=== PATIENT | male | born 1955 | race Caucasian/White ===

== ENCOUNTER 2020-09-01 13:02 | Outpatient (CLI) | payer OTHER, SELFPAY ==
[2020-09-01 13:12] LABS: Hematocrit 42.9 % (40.0-54.0); Hemoglobin 13.8 g/dL (14.0-18.0); Mean Corpuscular HGB Conc 32.2 g/dL (32.0-36.0); Mean Corpuscular Hemoglobin 28.6 pg (27.0-31.0); Mean Platelet Volume 9.4 fl (8.7-11.0); Platelet Count Result 269 K/mm3 (150-420); Red Blood Count 4.82 M/mm3 (4.70-6.10); Red Cell Distribution Width 12.8 % (11.6-14.4); White Blood Count 7.5 K/mm3 (4.8-10.8)
[2020-09-01 14:10] LABS: Alanine Aminotransferase 34 U/L (16-63); Albumin Level 4.4 g/dL (3.4-5.0); Alkaline Phosphatase 73 U/L (46-116); Anion Gap 10 mmol/L (8-16); Aspartate Amino Transferase 20 U/L (15-37); Bilirubin,Total 0.8 mg/dL (0.00-1.00); Blood Urea Nitrogen 14 mg/dL (7-18); Calcium 9.2 mg/dL (8.5-10.1); Carbon Dioxide 29 mmol/L (21-32); Chloride 104 mmol/L (98-108); Cholesterol 188 mg/dL (0-200); Estimated Glomerular Filt Rate > 60; Glucose 87 mg/dL (70-99); HDL Direct 43 mg/dL (40-60); LDL Cholesterol Calculated 128 mg/dL (<130); Osmolality Calculated 295 mOsm/kg (285-295); Potassium 4.3 mmol/L (3.5-5.1); Sodium 143 mmol/L (136-145); Total Protein 7.5 g/dL (6.4-8.2); Triglycerides 84 mg/dL (0-150)
== END 2020-09-01 13:03 | disposition home or self-care (01) ==
LOC: CHSLAB 13:05
PROVIDERS: PCP Family Medicine; Visit Provider Family Medicine
DX: I10 Essential (primary) hypertension (principal)
CPT/HCPCS: 36415; 80053; 80061; 85027

== ENCOUNTER 2021-01-06 16:15 | Outpatient (NON) | payer OTHER, SELFPAY | END 2021-01-06 16:16 | LOC: CHSLAB 16:16 | PROVIDERS: Visit Provider Family Medicine | DX: L57.0 Actinic keratosis (principal) | CPT/HCPCS: 88305 ==

== ENCOUNTER 2022-03-24 09:47 | Outpatient (CLI) | payer OTHER, SELFPAY ==
[2022-03-24 09:57] LABS: Hematocrit 43.9 % (40.0-54.0); Hemoglobin 14.2 g/dL (14.0-18.0); Mean Corpuscular HGB Conc 32.3 g/dL (32.0-36.0); Mean Corpuscular Hemoglobin 28.7 pg (27.0-31.0); Mean Corpuscular Volume 88.7 fL (78.0-102.0); Mean Platelet Volume 9.8 fl (8.7-11.0); Platelet Count Result 273 K/mm3 (150-420); Red Blood Count 4.95 M/mm3 (4.70-6.10); Red Cell Distribution Width 12.6 % (11.6-14.4); White Blood Count 7.4 K/mm3 (4.8-10.8)
[2022-03-24 10:14] LABS: Alanine Aminotransferase 30 U/L (16-63); Albumin Level 4.3 g/dL (3.4-5.0); Alkaline Phosphatase 78 U/L (46-116); Anion Gap 7 mmol/L (8-16); Aspartate Amino Transferase 18 U/L (15-37); Bilirubin,Total 1.5 mg/dL (0.00-1.00); Blood Urea Nitrogen 24 mg/dL (7-18); Calcium 9.8 mg/dL (8.5-10.1); Carbon Dioxide 29 mmol/L (21-32); Chloride 103 mmol/L (98-108); Cholesterol 96 mg/dL (0-200); Estimated Glomerular Filt Rate 43; Glucose 106 mg/dL (70-99); HDL Direct 39 mg/dL (40-60); LDL Cholesterol Calculated 43 mg/dL (<130); Osmolality Calculated 292 mOsm/kg (285-295); Sodium 139 mmol/L (136-145); Total Protein 7.9 g/dL (6.4-8.2); Triglycerides 68 mg/dL (0-150)
== END 2022-03-24 09:48 | disposition home or self-care (01) ==
LOC: CHSLAB 09:49
PROVIDERS: PCP Family Medicine; Visit Provider Family Medicine
DX: I10 Essential (primary) hypertension (principal)
CPT/HCPCS: 36415; 80053; 80061; 85027

== ENCOUNTER 2023-03-22 08:46 | Outpatient (CLI) | payer MEDICARE, SELFPAY ==
[2023-03-22 09:00] LABS: Hematocrit 40.1 % (37.0-46.0); Hemoglobin 12.9 g/dL (12.4-15.3); Mean Corpuscular HGB Conc 32.2 g/dL (32.0-36.0); Mean Corpuscular Hemoglobin 28.5 pg (27.0-31.0); Mean Corpuscular Volume 88.5 fL (78.0-102.0); Mean Platelet Volume 9.2 fl (8.7-11.0); Platelet Count Result 223 K/mm3 (150-420); Red Blood Count 4.53 M/mm3 (4.70-6.10); Red Cell Distribution Width 12.6 % (11.6-14.4); White Blood Count 6.4 K/mm3 (4.8-10.8)
[2023-03-22 09:51] LABS: Alanine Aminotransferase 30 U/L (16-63); Albumin Level 3.8 g/dL (3.4-5.0); Alkaline Phosphatase 81 U/L (46-116); Anion Gap 9 mmol/L (8-16); Aspartate Amino Transferase 24 U/L (15-37); Bilirubin,Total 0.7 mg/dL (0.00-1.00); Blood Urea Nitrogen 13 mg/dL (7-18); Calcium 8.9 mg/dL (8.5-10.1); Carbon Dioxide 29 mmol/L (21-32); Chloride 107 mmol/L (98-108); Cholesterol 118 mg/dL (0-200); Estimated Glomerular Filt Rate > 60; Glucose 109 mg/dL (70-99); HDL Direct 38 mg/dL (40-60); LDL Cholesterol Calculated 65 mg/dL (<130); Osmolality Calculated 301 mOsm/kg (285-295); Potassium 4.1 mmol/L (3.5-5.1); Sodium 145 mmol/L (136-145); Triglycerides 77 mg/dL (0-150)
== END 2023-03-22 08:47 | disposition home or self-care (01) ==
LOC: CHSLAB 08:49
PROVIDERS: PCP Family Medicine; Visit Provider Family Medicine
DX: I10 Essential (primary) hypertension (principal)
CPT/HCPCS: 36415; 80053; 80061; 85027

== ENCOUNTER 2024-02-21 10:29 | Outpatient (CLI) | payer MEDICARE, SELFPAY ==
--- NOTE | ~2024-02-21 | XR_ITS ---
XR ankle LT min 3V 02/21/2024 11:00 Indication: Left ankle pain Procedure: 4 views left ankle Comparison: No prior studies for comparison. 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 Small degenerative calcaneal enthesophyte at the plantar surface. No fracture or traumatic malalignment. There are loose bodies ad jacent to the lateral malleolus. Ankle mortise intact. Talar dome is normal. Impression: 1: Mild polyarticular osteoarthritis. Reviewed, dictated and finalized at location A. Impression: 1: Mild polyarticular osteoarthritis.
[2024-02-21 10:55] LABS: Basophils Absolute Auto 0.03 K/mm3 (0.00-0.10); Basophils Percent Auto 0.5 % (0.0-1.0); Eosinophils Absolute Auto 0.17 K/mm3 (0.02-0.50); Eosinophils Percent Auto 2.6 % (1.0-6.0); Hematocrit 41.7 % (37.0-46.0); Hemoglobin 13.6 g/dL (12.4-15.3); Immature Granulocyte Absolute 0.02 K/mm3 (0.00-0.00); Immature Granulocyte Percent A 0.3 % (0.0-0.0); Lymphocytes Absolute Auto 1.12 K/mm3 (1.10-4.50); Lymphocytes Percent Auto 17.3 % (18.0-42.0); Mean Corpuscular HGB Conc 32.6 g/dL (32-36); Mean Corpuscular Hemoglobin 28.5 pg (27.0-31.0); Mean Corpuscular Volume 87.2 fL (78.0-102.0); Monocytes Absolute Auto 0.45 K/mm3 (0.10-0.90); Neutrophils Absolute Auto 4.67 K/mm3 (1.70-7.20); Neutrophils Percent Auto 72.3 % (50.0-70.0); Platelet Count Result 267 K/mm3 (150-420); Red Blood Count 4.78 M/mm3 (4.70-6.10); Red Cell Distribution Width 12.5 % (11.6-14.4); White Blood Count 6.5 K/mm3 (4.8-10.8)
[2024-02-21 11:45] LABS: Alanine Aminotransferase 34 U/L (16-63); Albumin Level 4.2 g/dL (3.4-5.0); Alkaline Phosphatase 82 U/L (46-116); Anion Gap 10 mmol/L (4-12); Aspartate Amino Transferase 18 U/L (15-37); Bilirubin,Total 1.2 mg/dL (0.00-1.00); Blood Urea Nitrogen 18 mg/dL (7-18); Calcium 9.2 mg/dL (8.5-10.1); Carbon Dioxide 27 mmol/L (21-32); Chloride 104 mmol/L (98-108); Cholesterol 99 mg/dL (0-200); Estimated Glomerular Filt Rate > 60; Glucose 98 mg/dL (70-99); HDL Direct 40 mg/dL (40-60); LDL Cholesterol Calculated 46 mg/dL (<130); Osmolality Calculated 293 mOsm/kg (285-295); Potassium 4.5 mmol/L (3.5-5.1); Sodium 141 mmol/L (136-145); Total Protein 7.2 g/dL (6.4-8.2); Triglycerides 63 mg/dL (0-150)
== END 2024-02-21 10:30 | disposition home or self-care (01) ==
LOC: CHSLAB 10:32
PROVIDERS: PCP Family Medicine; Visit Provider Family Medicine
DX: M25.572 Pain in left ankle and joints of left foot (principal); I10 Essential (primary) hypertension; L98.9 Disorder of the skin and subcutaneous tissue, unspecified; M19.072 Primary osteoarthritis, left ankle and foot
CPT/HCPCS: 36415; 73610; 80053; 80061; 85025; 88305

== ENCOUNTER 2025-02-20 10:11 | Outpatient (CLI) | payer MEDICARE, SELFPAY ==
[2025-02-20 10:40] LABS: Basophils Absolute Auto 0.05 K/mm3 (0.00-0.10); Basophils Percent Auto 0.8 % (0.0-1.0); Eosinophils Absolute Auto 0.21 K/mm3 (0.02-0.50); Eosinophils Percent Auto 3.3 % (1.0-6.0); Hemoglobin 13.1 g/dL (12.4-15.3); Immature Granulocyte Absolute 0.01 K/mm3 (0.00-0.00); Immature Granulocyte Percent A 0.2 % (0.0-0.0); Lymphocytes Absolute Auto 1.02 K/mm3 (1.10-4.50); Lymphocytes Percent Auto 15.8 % (18.0-42.0); Mean Corpuscular HGB Conc 32.8 g/dL (32-36); Mean Corpuscular Hemoglobin 28.5 pg (27.0-31.0); Mean Corpuscular Volume 87.1 fL (78.0-102.0); Mean Platelet Volume 9.4 fl (8.7-11.0); Monocytes Absolute Auto 0.41 K/mm3 (0.10-0.90); Monocytes Percent Auto 6.3 % (2.0-11.0); Neutrophils Absolute Auto 4.76 K/mm3 (1.70-7.20); Neutrophils Percent Auto 73.6 % (50.0-70.0); Platelet Count Result 283 K/mm3 (150-420); Red Blood Count 4.59 M/mm3 (4.70-6.10); Red Cell Distribution Width 12.8 % (11.6-14.4); White Blood Count 6.5 K/mm3 (4.8-10.8)
[2025-02-20 11:25] LABS: Alanine Aminotransferase 31 U/L (16-63); Alkaline Phosphatase 92 U/L (46-116); Anion Gap 8 mmol/L (4-12); Aspartate Amino Transferase 16 U/L (15-37); Bilirubin,Total 0.9 mg/dL (0.00-1.00); Blood Urea Nitrogen 16 mg/dL (7-18); Carbon Dioxide 28 mmol/L (21-32); Chloride 108 mmol/L (98-108); Cholesterol 98 mg/dL (0-200); Estimated Glomerular Filt Rate > 60; Glucose 98 mg/dL (70-99); HDL Direct 40 mg/dL (40-60); LDL Cholesterol Calculated 48 mg/dL (<130); Osmolality Calculated 299 mOsm/kg (285-295); Potassium 4.1 mmol/L (3.5-5.1); Prostate Specific Antigen 2.1 ng/mL (< OR = 4.0); Sodium 144 mmol/L (136-145); Thyroid Stimulating Hormone Reflex 0.84 u/IU/mL (0.36-3.74); Total Protein 7.2 g/dL (6.4-8.2); Triglycerides 49 mg/dL (0-150)
--- OUTSIDE RECORDS SUMMARY | 2025-02-20 11:30 | XMS_ITS | Clinical Summary ---
Author Organization [facility] Address [address] [place] [address] Phone Care Team Providers Care Fire Technician Name Role Phone Unavailable Primary Care Provider Unavailabl e Social History Tobacco Use Types Packs/Day Years Used Date Smoking Tobacco: Never Assessed Sex and Gender Information Value Date Recorded Sex Assigned at Not on file Legal Sex Male 9:43 AM CDT Gender Identity Not on file Sexual Orientation Not on file Plan of Treatment Health Maintenance Due Date Last Done Comments Hepatitis C Virus (HCV) Screening 1955 TdaP Immunization 1955 Colonoscopy 2002 Colorectal Cancer Screening 2002 Cologuard 2007 Immunochemical Fecal Occult Blood 2007 Pneumococcal Immunization (5 0+ years) (1 of 1 - PCV) 2007 Zoster Immunization (1 of 2) 2007 PSA Discussion 2012 Influenza Immunization (#1) 2024 SARS-COV-2 Immunization ( - 2023-25 season) 2024 Respiratory Syncytial Virus (RSV) Immunization (Adult) (1 - 1-dose 75+ series) 2032 Hepatitis B Immunization Aged Out No longer eligible based on patient's age to complete this topic Meningococcal Immunization (ACWY) Aged Out No longer eligible based on patient's age to complete this topic Rotavirus Immunization Aged Out No lo nger eligible based on patient's age to complete this topic
--- OUTSIDE RECORDS SUMMARY | 2025-02-20 11:30 | XMS_ITS | Referral Summary ---
Author Organization [facility] Address [address] [place] [address] Care Team Providers Care Dental Equipment Technician Name Role Phone Ace Watson MD Primary Care Provider [phone] Allergies No known active allergies Medications lisinopril (PRINIVIL,ZESTR [place]) 20 mg tablet Take 20 mg by mouth daily. Active docusate sodium (COLACE) 100 mg capsuleIndicati ons:constipatio n Take 1 capsule (100 mg total) by mouth 2 (two) times a day. 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 PPO Advance Directives For more information, please contact: [phone] * Full Code (Latest Code Status on File) Date Activated Date Inactivated Comments 01/31/2018 12:39 PM 02/03/2018 4:01 PM Care Teams Dental Equipment Technician Relationship Specialty Start Date End Date Ace Watson MD [address] [id number] PCP - General 01/31/18
--- OUTSIDE RECORDS SUMMARY | 2025-02-20 11:30 | XMS_ITS | Clinical Summary ---
Author Organization [facility] Address [address] [place] [address] Care Team Providers Care Street Sweeper Operator Name Role Phone Unavailable Primary Care Provider Unavailabl e Source Comments [facility],non-owned Affiliates and Associated Physician Practices is amultiple site organization consisting of ambulatory clinics and hospital sitesin [place], [place], [place] and [place]. This disclosure is being madepursuant to the Care Everywhere program and may not contain all information available regarding this patient. Last updated 18.[facility] Social History Tobacco Use Types Packs/Day Years Used Date Smoking Tobacco: Never Assessed Sex and Gender Information Value Date Recorded Sex Assigned at Not on file Gender Identity Not on file Sexual Orientation Not on file Plan of Treatment Health Maintenance Due Date Last Done Comments COLOGUARD (AGES 45-75) - COL ON CA SCREENING 1957 COLON MONITORING 1957 COLONOSCOPY - COLON CA SCREENING 1957 CT COLONOGRAPHY - COLON CA SCREENING 1957 Colorectal Cancer Screening 1957 FIT - COLON CA SCREENING 1957 FLEX SIG - COLON CA SCREENING 1957 LIPID TESTING 1957 HEPATITIS C SCREENING 07/23/1975 DTAP/TDAP/TD VACCINES (1 - Tdap) 1976 PNEUMOCOCCAL VACCINE 50+ (1 of 1 - PCV) 2007 ZOSTER VACCINE (1 of 2) 2007 COVID-19 VACCINE ( - 2023-2 5 season) 2024 DEPRESSION SCREENING 11/14/2024 INFLUENZA VACCINE (Season Ended) 2025 Respiratory Syncytial Virus (RSV) Vaccine Pt: or over 60 yrs (1 - 1-dose 75+ series) 2032 HEPATITIS B VACCINE Aged Out No longe r eligible based on patient's age to complete this topic HIB VACCINE Aged Out No longer eligi ble based on patient's age to complete this topic HPV VACCINE Aged Out No longer eligi ble based on patient's age to complete this topic MENINGOCOCCAL (Group B) VACC INE SHARED DECISION-MAKING Aged Out No longer eligibl e based on patient's age to complete this topic MENINGOCOCCAL GROUPS A/C/Y/W VACCINE Aged Out No longer eligible b ased on patient's age to complete this topic
--- OUTSIDE RECORDS SUMMARY | 2025-02-20 11:30 | XMS_ITS | Clinical Summary ---
Author Organization [facility] Address [address] [place] [address] Care Team Providers Care Quilting Machine Helper Name Role Phone Ace Watson MD Primary Care Provider [phone] Allergies No known active allergies Medications lisinopril (PRINIVIL,ZESTR [place]) 20 mg tablet Take 20 mg by mouth daily. Active docusate sodium (COLACE) 100 mg capsuleIndicati ons:constipatio n Take 1 capsule (100 mg total) by mouth 2 (two) times a day. 30 capsule 02/03/2018 Active Active Problems Problem Noted Date Diagnosed Date Cholecystitis 01/31/2018 Surgical History Surgery Date Site/Laterality Comments ROTATOR CUFF REPAIR RETINA SURGERY Left CATARACT EXTRACTION Left CHOLECYSTECTOMY 02/01/2018 Laparoscopic Cholecystectomy Medical History Medical History Date Comments Hypertension Gallstones Family History Medical History Relation Name Comments Heart disease Paternal Grandmother Relation Name Status Comments Father Mother Paternal Grandmother Social History Tobacco Use Types Packs/Day Years Used Date Smoking Tobacco: Former Cigars Smokeless Tobacco: Never Alcohol Use Standard Drinks/Week Comments Yes 0 (1 standard drink = 0.6 oz pur e alcohol) occassional Sex and Gender Information Value Date Recorded Sex Assigned at Not on file 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
== END 2025-02-20 10:12 | disposition home or self-care (01) ==
PROVIDERS: PCP Family Medicine; Visit Provider Family Medicine
DX: R35.1 Nocturia (principal); E03.9 Hypothyroidism, unspecified; I10 Essential (primary) hypertension; Z12.5 Encounter for screening for malignant neoplasm of prostate
CPT/HCPCS: 36415; 80053; 80061; 84153; 84443; 85025; G0103